=== PATIENT | male | born 1995 | race Caucasian/White ===

== ENCOUNTER 2021-06-22 07:02 | Emergency (ER) | payer OTHER, SELFPAY ==
--- NOTE | ~2021-06-22 | XR_ITS ---
EXAMINATION: XR chest 1V portable EXAM DATE: 06/22/2021 08:30 INDICATION: Cough, SOB,Fever,X3days,COVID19+ . TECHNIQUE: Portable AP frontal chest x-ray was obtained. There is no prior study for comparison. FINDINGS: There is ill-defined right lower lobe subsegmental airspace disease, probably pneumonia. Le ft lung is clear. No pneumothorax or pleural effusion. Cardiomediastinal silhouette is normal. There are no osseous abnormalities identified. IMPRESSION: Subsegmental right lower lobe pneumonia. Reviewed, dictated and finalized at location B.
--- NOTE | ~2021-06-22 | CT_ITS ---
EXAMINATION: CTA chest PE protocol EXAM DATE: 06/22/2021 09:04 INDICATION: COVID, d-dimer elevated, hemoptysis shortness of breath, fever, weakness, positive d-dime r. COVID 19. TECHNIQUE: Spiral CTA of the chest (pulmonary arteries) was performed with 100 cc Omnipaque 350 intr avenous contrast injection. Images were acquired during the pulmonary arterial phase. Coronal maxi mum intensity projection 3D-reconstructions were created by the technologist on dedicated workstation . Axial, coronal and sagittal reformatted images were reviewed. The dose-length product (DLP) for t his examination was 522.59 mGy-cm. The exposure was tailored according to patient size (auto mA exp osure control), and iterative reconstruction (ASIR) was used as additional dose reduction technique. Correlation is made to chest x-ray earlier same day. FINDINGS: Pulmonary arteries are well opacified and without intraluminal filling defects. No thora cic aortic dissection. There is focal right lower lobe round groundglass airspace disease measuring about 5 cm. Could be atypical distribution of acute COVID 19 pneumonia. Other possibilities include i nfluenza, pulmonary edema or hemorrhage. Some chronic processes that can have this appearance include cryptogenic organizing pneumonia, desquamative interstitial pneumonia, nonspecific interstitial pneu monia, drug toxicity, connective tissue disease. Please clinically correlate and test as appropriate. There are no pleural or pericardial effusions. Tracheobronchial tree is patent. Some reactive rig ht hilar lymph nodes. There is no pneumothorax. Heart normal in size. No evidence of coronary ar terial calcification. Upper abdomen is unremarkable. There is thoracic spondylosis without osteobl astic or osteolytic lesions identified. IMPRESSION: 1. Right lower lobe segmental opacity most likely acute infectious process, pneumonia. 2. No pulmonary emboli. Reviewed, dictated and finalized at location B. IMPRESSION: 1. Right lower lobe segmental opacity most likely acute infectious process, pn eumonia. 2. No pulmonary emboli.
[2021-06-22 07:10] VITALS: BP 140/88; PULSE 94; RESP 16; TEMP 38; O2SAT 95
--- NOTE | 2021-06-22 07:26 | ECG_ITS ---
Measurements Intervals [place] Rate: 91 P: 35 CO: 131 QRS: 42 QRSD: 103 T: -6 QT: 383 QTc: 472 Interpretive Statements SINUS RHYTHM BORDERLINE ST-T WAVE ABNORMALITY- INFERIOR LEADS BASELINE ARTIFACT- I, II, III BORDERLINE ECG Electronically Signed On 06-22-2021 7:56:17 CDT by Laz Bashir D.O.
--- NOTE | 2021-06-22 07:29 | ED.GENADULT ---
HPI - General Adult General Chief complaint: Upper Respiratory Infection Stated complaint: POSSIBLE COVID Source: patient Mode of arrival: ambulatory Limitations: no limitations History of Present Illness HPI narrative: Chapo is a previously healthy 25M that presented to the ED with a variety of symptoms. 2 days ago he started having body aches which then led to a productive cough, frontal headaches, fatigue and diffuse body aches. He had some blood tinged vomit on 1 episode but he has vomited several times. Related Data Allergies Allergy/AdvReac Type Severity Reaction Status Date / Time Penicillins Allergy Unknown Verified 06/22/21 07:21 Review of Systems Constitutional: Constitutional: Reports fatigue and Reports fever(s) Eyes: Eyes: Reports no additional eye complaints ENT: Reports system reviewed and no additional complaints, except as documented Cardiovascular: Cardiovascular: Reports no additional cardiovascular complaints Respiratory: Respiratory: Reports as per HPI Gastrointestinal: Gastrointestinal: Reports as per HPI Genitourinary: Genitourinary: Reports no additional male genitourinary complaints Musculoskeletal: Musculoskeletal: Reports as per HPI Integumentary/Breasts: Skin/Breast: Reports system reviewed and no additional complaints, except as docu Neurologic: Reports system reviewed and no additional complaints, except as documented Psychiatric: Psychiatric: Reports no additional psychiatric complaints Endocrine: Endocrine: Reports no additional endocrine complaints Hematologic/Lymphatic: Hematologic/Lymphatic: Reports no additional hematologic/lymphatic complaints Allergic/Immunologic: Allergic/Immunologic: Reports no additional allergic/immunologic complaints Exam Const: General: no acute distress Orientation/consciousness: patient oriented x3 HENMT: Head: normal to inspection Mouth: Yes Normal oral and palatal mucosa present Other: atraumatic Eyes: Conjunctivae: conjunctivae normal Pupils: Equal, round and reactive pupils present Neck: Neck: normal visual inspection Chest: Chest palpation & inspection: normal inspection of the chest Resp: Effort & Inspection: normal respiratory effort Auscultation: clear to auscultation bilaterally Cardio: Rate: regular rate Rhythm: regular rhythm GI: Inspection: non-distended GI Palp: Yes Soft to palpation, No Tenderness to palpation present (GI) and No Guarding due to palpation present (GI) Skin: General skin exam: normal color Rashes: no rashes Neuro: General: patient oriented x3 and moves all extremities Extrem: General: normal to inspection Psych: Mental Status: mental status grossly normal Course Course Emergency Course: Chapo was evaluated. Ordered labs, CXR, EKG. He declined any meds at this time. Labs showed leukopenia but were otherwise normal. COVID was positive. EXAMINATION: CTA chest PE protocol EXAM DATE: 06/22/2021 09:04 INDICATION: COVID, d-dimer elevated, hemoptysis shortness of breath, fever, weakness, positive d-dimer. COVID 19. TECHNIQUE: Spiral CTA of the chest (pulmonary arteries) was performed with 100 cc Omnipaque 350 intravenous contrast injection. Images were acquired during the pulmonary arterial phase. Coronal maximum intensity projection 3D-reconstructions were created by the technologist on dedicated workstation. Axial, coronal and sagittal reformatted images were reviewed. The dose-length product (DLP) for this examination was 522.59 mGy-cm. The exposure was tailored according to patient size (auto mA exposure control), and iterative reconstruction (ASIR) was used as additional dose reduction technique. Correlation is made to chest x-ray earlier same day. FINDINGS: Pulmonary arteries are well opacified and without intraluminal filling defects. No thoracic aortic dissection. There is focal right lower lobe round groundglass airspace disease measuring about 5 cm. Could be atypical distributio
[2021-06-22 07:50] LABS: Hematocrit 44.5 % (40.0-54.0); Hemoglobin 14.3 g/dL (14.0-18.0); Mean Corpuscular HGB Conc 32.1 g/dL (32.0-36.0); Mean Corpuscular Hemoglobin 27.7 pg (27.0-31.0); Mean Corpuscular Volume 86.2 fL (78.0-102.0); Mean Platelet Volume 9.5 fl (8.7-11.0); Platelet Count Result 177 K/mm3 (150-420); Red Blood Count 5.16 M/mm3 (4.70-6.10); Red Cell Distribution Width 13.4 % (11.6-14.4); White Blood Count 4.3 K/mm3 (4.8-10.8)
[2021-06-22 07:52] LABS: Add Urine Microscopic? YES; Appearance Urine Clear (Clear); Bilirubin Urine 1+ (Negative); Blood Urine 1+ (Negative); Color Urine Yellow (Yellow); Glucose Urine UA Negative (Negative); Ketones Urine Trace (Negative); Leukocyte Esterase Ur Negative (Negative); Nitrate Urine Negative (Negative); Protein Urine Trace (Negative); Specific Grav Ur >= 1.030 (1.010-1.020); pH Urine 5.5 (5.0-8.0)
--- NOTE | 2021-06-22 07:55 | PC.NURSE ---
voided without difficulty for urine specimen. denies sob. no cough noted. no emesis since arrival. watching TV. taking ice chips without c/o nausea
[2021-06-22 08:00] LABS: Bacteria Urine Trace /hpf; Mucus Urine Moderate /lpf; WBC Urine 0-3 /hpf (0-3)
[2021-06-22 08:12] LABS: Alanine Aminotransferase 40 U/L (16-63); Alkaline Phosphatase 94 U/L (46-116); Anion Gap 7 mmol/L (8-16); Aspartate Amino Transferase 32 U/L (15-37); Bilirubin,Total 0.5 mg/dL (0.00-1.00); Blood Urea Nitrogen 13 mg/dL (7-18); Calcium 8.7 mg/dL (8.5-10.1); Carbon Dioxide 31 mmol/L (21-32); Chloride 104 mmol/L (98-108); Estimated CRCL calculation 106 ml/min; Estimated Glomerular Filt Rate > 60; Glucose 96 mg/dL (70-99); NT Pro B Type Natriuretic Pept 27 pg/mL (0-125); Osmolality Calculated 294 mOsm/kg (285-295); Potassium 3.6 mmol/L (3.5-5.1); SARS-CoV-2 Ag Positive (Negative); Sodium 142 mmol/L (136-145); Total Protein 7.5 g/dL (6.4-8.2); Troponin I 5.3 ng/L (0.00-60.4)
[2021-06-22 08:12] LABS: Influenza Control Valid (Valid)
[2021-06-22 08:20] LABS: Platelet Estimate Adequate (Adequate)
[2021-06-22 09:05] VITALS: BP 132/68; PULSE 89; RESP 16; TEMP 37.7; O2SAT 96
[2021-06-22] MEDS: ACETAMINOPHEN 500 MG TABLET 1000 MG PO (09:27)
--- NOTE | 2021-06-22 09:36 | PC.NURSE ---
0905---pt to radiology per w/c. denies sob at this time. resp even and non-labored. denies n/v. no emesis since arrival. tommie ice chips well.
== END 2021-06-22 10:00 | disposition home or self-care (01) ==
PROVIDERS: Emergency Provider Family Medicine
DX: U07.1 COVID-19 (principal); J18.9 Pneumonia, unspecified organism
CPT/HCPCS: 36415; 71045; 71275; 80053; 81001; 83880; 84484; 85025; 85380; 87426; 87804; 93005; 99283; 99284; C9803; Q9967

== ENCOUNTER 2021-06-29 17:11 | Inpatient (IN) | payer OTHER, SELFPAY ==
[2021-06-29] VITALS (7 sets, daily range): BP systolic 116–149; BP diastolic 72–77; PULSE 89–106; RESP 18–20; TEMP 37.4–38.4; O2SAT 92–95; BMI 30.5
--- NOTE | ~2021-06-29 | XR_ITS ---
EXAMINATION: XR chest 1V portable INDICATION: Cough and fever, COVID 19 TECHNIQUE: Portable AP chest at 1807 hours COMPARISON: 06/22/2021 FINDINGS: Patchy opacities have developed throughout all lung zones, most prominently in the left mid lung zone in the right mid and lower lung zones. There is no pleural effusion or pneumothorax. The ca rdiomediastinal silhouette is normal. IMPRESSION: 1. Developing bilateral opacities, consistent with COVID 19 pneumonia Reviewed, dictated and finalized at location A.
--- NOTE | 2021-06-29 17:44 | ED.FEVER ---
HPI - Fever General Chief Complaint: Shortness of Breath/Dyspnea Stated Complaint: COVID+, chest pain,cough,fever,headache,vomiting Time Seen by Provider: 06/29/21 17:44 Source: patient Mode of arrival: ambulatory Limitations: no limitations History of Present Illness HPI Narrative: Previously well 25-year-old man comes in today complaining of shortness of breath, fever, body aches, headache and cough that has been persistent for the last week. He was diagnosed with COVID 1 week ago. He went home on a week of oral Levaquin and his symptoms are unchanged. He has had some mild intermittent diarrhea, nausea and vomiting. MD elicited complaint: fever, malaise and weakness Onset (ago): week(s) (1) Context: recent antibiotic use Exacerbating factors: nothing Relieving factors: nothing Associated symptoms: myalgias, headache, nasal congestion, cough, chest pain (With cough), shortness of breath, nausea, vomiting and diarrhea Treatments prior to arrival fever: acetaminophen, ibuprofen and antibiotics Related Data Allergies Allergy/AdvReac Type Severity Reaction Status Date / Time Penicillins Allergy Unknown Verified 06/29/21 17:52 Review of Systems Constitutional: Constitutional: Reports fatigue and Reports fever(s) Eyes: Eyes: Denies change in vision and Denies photophobia ENT: Reports nasal congestion and Denies sore throat Cardiovascular: Cardiovascular: Reports chest pain (With cough) and Denies radiating jaw, neck or arm pain Respiratory: Respiratory: Reports as per HPI, Reports chest congestion, Reports cough, Reports dyspnea and Denies wheezing Gastrointestinal: Gastrointestinal: Denies abdominal pain, Reports diarrhea, Reports nausea and Reports vomiting Genitourinary: Genitourinary: Denies dysuria and Denies urinary frequency Musculoskeletal: Musculoskeletal: Denies back pain, Reports myalgias, Denies arthralgias and Denies joint swelling Integumentary/Breasts: Skin/Breast: Denies pruritus, Denies erythema and Denies rash Neurologic: Denies confusion, Denies vertigo, Denies dizziness, Denies syncope, Reports headache(s), Denies focal weakness and Denies numbness Hematologic/Lymphatic: Hematologic/Lymphatic: Denies easy bleeding and Denies easy bruising Allergic/Immunologic: Allergic/Immunologic: Denies lip swelling, Denies throat swelling and Denies tongue swelling [facility] Social History Social History (Updated 06/29/21 @ 20:12 by Hammad Valentin MD) Smoking status: Never smoker Substance use: never Living arrangements: with family Exam Const: General: alert and ill appearing acutely Orientation/consciousness: patient oriented x3 Other: Mild acute distress. HENMT: Head: normal to inspection Mouth: Yes moist mucous membranes Throat: posterior oropharynx normal Eyes: Conjunctivae: conjunctivae normal Pupils: Equal, round and reactive pupils present EOM: EOMs intact bilaterally Resp: Effort & Inspection: normal respiratory effort and not labored Auscultation: wheezes expiratory wheezes, inspiratory wheezes, right lower and right upper and diminished lung sounds diffuse Cardio: Rate: regular rate Rhythm: regular rhythm Heart sounds: no murmurs Other: Extremities are warm dry and pink. GI: GI Palp: Yes Soft to palpation and No Tenderness to palpation present (GI) Skin: General skin exam: normal color, no jaundice and no pallor Rashes: no rashes Neuro: General: patient oriented x3, moves all extremities, no focal motor deficits and CN's II-XI intact bilaterally Speech: normal speech Gait exam (Neuro): Normal gait present Extrem: General: normal to inspection and no clubbing, cyanosis or edema Psych: Appearance: grossly normal and well kempt Mental Status: mental status grossly normal Affect: normal affect Attitude: cooperative Thought content: Yes Normal thought content present Course Vital Signs Vital signs: Vital Signs Temperature 38.4 C H 06/29/21 17:44 Pulse Rate 106 H 06/02
--- NOTE | 2021-06-29 17:51 | ECG_ITS ---
Measurements Intervals [place] Rate: 98 P: 22 MS: 138 QRS: 36 QRSD: 96 T: -28 QT: 333 QTc: 427 Interpretive Statements SINUS RHYTHM BORDERLINE ST-T WAVE ABNORMALITY- INF/LAT LEADS BASELINE ARTIFACT- II, III, AVF BORDERLINE ECG Electronically Signed On 06-30-2021 10:04:26 CDT by Laz Bashir D.O.
[2021-06-29 18:20] LABS: Base Excess ABG 3.6 mmol/L (0-2); HCO3 ABG 27.3 mmol/L (23-29); Oxygen Content ABG 17.7 %vol (16.0-22.0); Oxygen Saturation ABG 91.8 % (95-97); Oxyhemoglobin 91.4 % (94-100); PO2 ABG 56.8 mmHg (80-90); Total Hemoglobin 13.8 g/dL (12.0-18.0); pH ABG 7.47 (7.35-7.45)
[2021-06-29 18:22] LABS: Device NASAL CANNULA; Hematocrit 43.9 % (40.0-54.0); Mean Corpuscular HGB Conc 31.9 g/dL (32.0-36.0); Mean Corpuscular Hemoglobin 27.2 pg (27.0-31.0); Mean Corpuscular Volume 85.2 fL (78.0-102.0); Mean Platelet Volume 9.4 fl (8.7-11.0); Modified Allen's Test Pass; Platelet Count Result 215 K/mm3 (150-420); Red Blood Count 5.15 M/mm3 (4.70-6.10); Red Cell Distribution Width 13.2 % (11.6-14.4); Site Drawn LEFT RADIAL; White Blood Count 4.5 K/mm3 (4.8-10.8)
[2021-06-29] MEDS: SODIUM CHLORIDE 0.9% IV 1,000 ML 999 ML IV CONT (18:33)
[2021-06-29] MEDS: ACETAMINOPHEN/CODEINE (*CRX) 300/30 MG TABLET 1 TAB PO (18:37)
[2021-06-29 18:41] LABS: Lactic Acid Reflex 1.2 mmol/L (0.4-2.0)
[2021-06-29 18:42] LABS: Alanine Aminotransferase 69 U/L (16-63); Albumin Level 3.5 g/dL (3.4-5.0); Alkaline Phosphatase 79 U/L (46-116); Anion Gap 8 mmol/L (8-16); Aspartate Amino Transferase 50 U/L (15-37); Bilirubin,Total 0.4 mg/dL (0.00-1.00); Blood Urea Nitrogen 14 mg/dL (7-18); Calcium 8.9 mg/dL (8.5-10.1); Carbon Dioxide 31 mmol/L (21-32); Chloride 102 mmol/L (98-108); Estimated CRCL calculation 125 ml/min; Estimated Glomerular Filt Rate > 60; Glucose 102 mg/dL (70-99); NT Pro B Type Natriuretic Pept 29 pg/mL (0-125); Osmolality Calculated 292 mOsm/kg (285-295); Potassium 4.1 mmol/L (3.5-5.1); Sodium 141 mmol/L (136-145); Total Protein 7.5 g/dL (6.4-8.2); Troponin I 4.4 ng/L (0.00-60.4)
[2021-06-29 18:44] LABS: Band Neutrophils Percent 0 % (0-6); Basophils Absolute Manual 0.04 K/mm3 (0-0.1); Basophils Percent Manual 1 % (0-1); CRP > 10.6 mg/dL (0.0-0.9); Eosinophils Percent Manual 0 % (1-6); Lymphocytes Absolute Manual 0.63 K/mm3 (1.1-4.5); Lymphocytes Percent Manual 14 % (18-44); Monocytes Absolute Manual 0.18 K/mm3 (0.1-0.90); Monocytes Percent Manual 4 % (3-9); Neutrophils Absolute Manual 3.64 K/mm3 (1.3-6.7); Neutrophils Percent Manual 81 % (46-73); Platelet Estimate Adequate (Adequate)
[2021-06-29 19:30] LABS: Add Urine Microscopic? YES; Appearance Urine Clear (Clear); Bilirubin Urine 1+ (Negative); Blood Urine Negative (Negative); Color Urine Yellow (Yellow); Glucose Urine UA Negative (Negative); Ketones Urine Negative (Negative); Leukocyte Esterase Ur Negative (Negative); Nitrate Urine Negative (Negative); Protein Urine 1+ (Negative); Specific Grav Ur 1.015 (1.010-1.020); Urobilinogen Urine >=8.0 mg/dL (0.2-1.0); pH Urine 7.5 (5.0-8.0)
[2021-06-29 19:36] LABS: Bacteria Urine Trace /hpf; RBC Urine 0-2 /hpf (0-2); Squamous Epithelial Cell Urine None seen /hpf (Few); WBC Urine 0-3 /hpf (0-3)
[2021-06-29 19:37] LABS: Mucus Urine Rare /lpf
--- NOTE | 2021-06-29 20:00 | PC.NURSE ---
Pt admitted to room 210 from ED. Covid positive patient placed on airborne isolation. Pt educated on isolation status and oriented to the environment. Pt has clothing and cell phone at bedside. Pt states he will be updating his family on his status. All questions answered at this time, pt given a turkey sandwich and some jello to eat.
[2021-06-29] MEDS: SODIUM CHLORIDE 0.9% IV 1,000 ML 100 ML IV CONT (20:32)
[2021-06-29 20:53] LABS: Influenza Control Valid (Valid)
--- NOTE | 2021-06-29 22:30 | PC.NURSE ---
Patient sitting up in bed drinking ice water. Continues to experience cough and generalized discomfort
[2021-06-30] VITALS (13 sets, daily range): BP systolic 124–133; BP diastolic 65–82; PULSE 78–92; RESP 16–21; TEMP 36.9–37.4; O2SAT 86–95
[2021-06-30] MEDS: ACETAMINOPHEN/CODEINE (*CRX) 300/30 MG TABLET 1 TAB PO ×2 (00:28→06:19)
--- NOTE | 2021-06-30 00:30 | PC.NURSE ---
Patient sitting up in med drinking ice water. Reports generalized discomfort and pain with coughing. Cough and pain decreased with tylenol with codeine.
--- NOTE | 2021-06-30 01:34 | PC.NURSE ---
Patient resting at this time. Fluids available at bedside.
[2021-06-30 05:45] LABS: Hematocrit 38.4 % (40.0-54.0); Mean Corpuscular HGB Conc 31.3 g/dL (32.0-36.0); Mean Corpuscular Hemoglobin 26.9 pg (27.0-31.0); Mean Corpuscular Volume 86.1 fL (78.0-102.0); Platelet Count Result 178 K/mm3 (150-420); Red Blood Count 4.46 M/mm3 (4.70-6.10); Red Cell Distribution Width 13.4 % (11.6-14.4); White Blood Count 4.4 K/mm3 (4.8-10.8)
[2021-06-30 06:02] LABS: Band Neutrophils Percent 0 % (0-6); Basophils Percent Manual 0 % (0-1); Eosinophils Percent Manual 0 % (1-6); Lymphocytes Absolute Manual 1.23 K/mm3 (1.1-4.5); Lymphocytes Percent Manual 28 % (18-44); Monocytes Absolute Manual 0.44 K/mm3 (0.1-0.90); Monocytes Percent Manual 10 % (3-9); Neutrophils Absolute Manual 2.72 K/mm3 (1.3-6.7); Neutrophils Percent Manual 62 % (46-73); Platelet Estimate Adequate (Adequate)
[2021-06-30 06:03] LABS: Alanine Aminotransferase 50 U/L (16-63); Albumin Level 2.7 g/dL (3.4-5.0); Alkaline Phosphatase 64 U/L (46-116); Anion Gap 7 mmol/L (8-16); Aspartate Amino Transferase 36 U/L (15-37); Bilirubin,Total 0.3 mg/dL (0.00-1.00); Blood Urea Nitrogen 11 mg/dL (7-18); Calcium 8.2 mg/dL (8.5-10.1); Carbon Dioxide 31 mmol/L (21-32); Chloride 106 mmol/L (98-108); Estimated CRCL calculation 127 ml/min; Estimated Glomerular Filt Rate > 60; Glucose 92 mg/dL (70-99); Osmolality Calculated 297 mOsm/kg (285-295); Potassium 4.1 mmol/L (3.5-5.1); Sodium 144 mmol/L (136-145); Total Protein 6.3 g/dL (6.4-8.2)
[2021-06-30] MEDS: SODIUM CHLORIDE 0.9% IV 1,000 ML 100 ML IV CONT ×2 (06:19→16:20)
--- NOTE | 2021-06-30 08:09 | PM.IMHP ---
H&P: HPI History of Present Illness Date/Time: 06/30/21 08:09n Pt admitted under Observation for COVID pneumonia Chapo Vee is a 25 year old male who comes to the hospital after 11 days of Fever, Body Aches, Joint Aches, persistent cough that is non-productive. Pt tested positive for COVID when in the ER on 06/22/2021 Negative for Flu A/B. Does not complain too much of SOB but more so for his repeated coughing. Chief Complaint: COVID pneumonia Review of Systems Constitutional: Constitutional: Reports no additional constitutional complaints, Reports body ache(s), Denies chills, Reports fever(s), Reports malaise and Reports poor appetite (due to taste) Cardiovascular: Cardiovascular: Reports no additional cardiovascular complaints, Denies chest pain, Denies chest pain at rest and Denies lightheadedness Respiratory: Respiratory: Reports no additional respiratory complaints, Reports cough and Denies dyspnea Gastrointestinal: Gastrointestinal: Reports no additional gastrointestinal complaints, Denies diarrhea, Denies nausea and Denies vomiting Genitourinary: Genitourinary: Reports no additional male genitourinary complaints Musculoskeletal: Musculoskeletal: Reports as per HPI, Reports myalgias, Reports arthralgias and Denies joint swelling Neurologic: Reports system reviewed and no additional complaints, except as documented, Denies vertigo, Denies dizziness, Denies lack of coordination and Denies focal weakness [facility] Social History Social History Smoking status: Never smoker Alcohol intake: current Drinks per week: 2 Substance use: never Substance use type: does not use Living arrangements: with family Spiritual care concerns: No Meds Home Medications and Allergies Home Medications Medication Instructions Recorded Confirmed Type levofloxacin 750 mg PO DAILY #6 tablet 06/22/21 06/29/21 Rx Allergies Allergy/AdvReac Type Severity Reaction Status Date / Time Penicillins Allergy Unknown Verified 06/29/21 17:52 Vital Signs Vital Signs - 24 hr 06/29/21 17:44 06/29/21 18:00 06/29/21 19:00 Temperature 101.1 F H Pulse Rate 106 H 95 91 Respiratory Rate 20 20 20 Blood Pressure 149/75 H 136/77 116/77 Pulse Oximetry 94 93 92 06/29/21 19:30 06/29/21 20:00 06/29/21 20:05 Temperature 100.1 F H Pulse Rate 90 90 89 Respiratory Rate 20 20 Blood Pressure 117/76 Pulse Oximetry 92 93 06/29/21 20:15 06/30/21 00:00 06/30/21 00:28 Temperature 99.3 F 99.4 F 99.4 F Pulse Rate 93 90 Respiratory Rate 18 18 Blood Pressure 130/72 129/74 Pulse Oximetry 95 91 06/30/21 04:00 06/30/21 06:19 06/30/21 08:00 Temperature 99.2 F 99.2 F 98.6 F Pulse Rate 79 84 Respiratory Rate 16 20 Blood Pressure 129/66 130/70 Pulse Oximetry 92 94 Exam Const: General: cooperative, comfortable, no acute distress, well developed, alert, awake, Physically active and tired appearing Nutritional Appearance: overweight Resp: Effort & Inspection: normal respiratory effort and Actively coughing (with deep inspiration) productive Auscultation: rales (Right lower lobe posterior) Cardio: Rate: regular rate Heart sounds: S1 normal heart sound present and S2 normal heart sound present GI: GI Palp: Yes Soft to palpation and No Tenderness to palpation present (GI) Auscultation: normal bowel sounds Back/Spine/Pelvis: Back: no CVA tenderness Cervical Spine: normal cervical lordosis Thoracic/Lumbar Spine: thoracic and lumbar spine normal to inspection Skin: General skin exam: normal color and dry skin Neuro: General: oriented to person, oriented to place, oriented to time and CN's II-XI intact bilaterally (grossly intact) Cranial nerves: Yes facial symmetry Cognition (Neuro): normal cognition Speech: normal speech Motor exam (neuro): 5/5 motor strength present throughout Extrem: General: full ROM and no pedal edema Psych: Appearance: grossly norm
--- NOTE | 2021-06-30 08:47 | PC.NURSE ---
Patient resting abed eyes open A/O x4 Cough nonproductive, Lungs diminished bilateral lower lobes,skin dry/color appropriate, no edema, O2 sat 94%,No taste. Respiratory Therapy in for incentive spirometer lung exercising technique. O2 sats decreased with 85-86% R/A. INSURANCE CONSULTANT Leonard made aware O2 placed. Will follow up changes upon occurrence.
--- NOTE | 2021-06-30 09:10 | PC.NURSE ---
9:00 a.m. Resident placed on O2@2Lpnc due to O2 sat drop down 85-86%. Encouragement to lye on abdomen and sides with avoidance on back as much as possible. Good verbal feedback of understanding. O2 sats after O2 @2lpnc 92%.
[2021-06-30 09:13] LABS: Base Excess ABG 1.2 mmol/L (0-2); HCO3 ABG 25.5 mmol/L (23-29); Oxygen Content ABG 17.3 %vol (16.0-22.0); Oxygen Saturation ABG 93.4 % (95-97); Oxyhemoglobin 92.7 % (94-100); PCO2 ABG 39.5 mmHg (35-45); PO2 ABG 66.7 mmHg (80-90); Total Hemoglobin 13.3 g/dL (12.0-18.0); pH ABG 7.43 (7.35-7.45)
[2021-06-30 09:14] LABS: Device NASAL CANNULA; Modified Allen's Test Pass; Site Drawn RIGHT RADIAL
--- NOTE | 2021-06-30 09:31 | PC.NURSE ---
Patient O2 sats dipping down. RT re-eval with O2 increased to 3Lpnc.
--- NOTE | 2021-06-30 09:45 | PC.NURSE ---
09:42 switch status to In-patient from observation status.
--- NOTE | 2021-06-30 10:10 | PC.NURSE ---
Incentive Spirometer encouraged 3500 is the Goal parient reached 2000 x2 and 2500 x2, continued encouraged Goal to meet with understanding.
--- NOTE | 2021-06-30 12:49 | PC.NURSE ---
Patient in sitting position abed, incentive spirometer done with all just above 2500. Continued emphesis on position should be on sides and more onto abdomen will be best for O2 levels. Patient contionues good verbal feedback. Will continue to monitor and observe and note changes as needed.
[2021-06-30] MEDS: guaiFENesin/DEXTROMETHORPHAN 5 ML UDC 10 ML PO ×2 (13:44→18:42)
--- NOTE | 2021-06-30 19:40 | PC.NURSE ---
Pt moved to room 212 due to issue with plumbing in the bathroom.
[2021-07-01] VITALS (8 sets, daily range): BP systolic 118–139; BP diastolic 63–81; PULSE 69–88; RESP 20; TEMP 36–36.6; O2SAT 92–97
[2021-07-01] MEDS: guaiFENesin/DEXTROMETHORPHAN 5 ML UDC 10 ML PO ×5 (04:25→23:20)
[2021-07-01] MEDS: SODIUM CHLORIDE 0.9% IV 1,000 ML 100 ML IV CONT (04:25)
[2021-07-01 05:38] LABS: Hemoglobin 13.9 g/dL (14.0-18.0); Mean Corpuscular HGB Conc 31.6 g/dL (32.0-36.0); Mean Corpuscular Volume 85.6 fL (78.0-102.0); Mean Platelet Volume 8.9 fl (8.7-11.0); Platelet Count Result 250 K/mm3 (150-420); Red Blood Count 5.14 M/mm3 (4.70-6.10); Red Cell Distribution Width 13.4 % (11.6-14.4); White Blood Count 5.3 K/mm3 (4.8-10.8)
[2021-07-01 05:50] LABS: Anion Gap 7 mmol/L (8-16); Blood Urea Nitrogen 10 mg/dL (7-18); Calcium 8.7 mg/dL (8.5-10.1); Carbon Dioxide 31 mmol/L (21-32); Chloride 107 mmol/L (98-108); Estimated CRCL calculation 137 ml/min; Estimated Glomerular Filt Rate > 60; Glucose 95 mg/dL (70-99); Osmolality Calculated 299 mOsm/kg (285-295); Sodium 145 mmol/L (136-145)
--- NOTE | 2021-07-01 08:20 | PM.IMPN ---
Progress Note: A&P Assessment and Plan (1) COVID-19: Code(s): U07.1 - COVID-19 Status: Acute Assessment and Plan: Rocephin, Azithromycin, Guaifenesin/Dextromethorphan, incentive spirometer, Flutter valve. Monitor VS, respiratory status, currently room air, Pt ambulated to the restroom and back to bed without SOB or increased WOB 07/01/2021 Pt started on oxygen yesterday at 2 L/min, overnight he required 3L/min, This AM his SpO2 was 96% and I reduced his Os flow to 1.5L/minute with a resulting SpO2 of 93% and an increase to 96% when Pt laid prone. Will monitor closely. Pt denies SOB or increased WOB, no CP. Pt was given option to start Remdesivir and stated he was not interested at this time but would like to have the steroid daily. (2) Community acquired pneumonia: Qualifiers: Laterality: unspecified laterality Qualified Code(s): J18.9 - Pneumonia, unspecified organism Code(s): J18.9 - Pneumonia, unspecified organism Status: Acute Assessment and Plan: Pt covered with Rocephin and Azithromycin along with same as listed above. 07/01/2021 Continue with Rocephin and Azithromycin, Pt has Incentive Spirometer and Flutter Valve in his room. Subjective Date/time seen: 07/01/21 08:20 Pt resting in bed with breakfast tray on table. Pt states his breathing feels better. No complaints of pain in his chest or pain with breathing. staff nurse anesthetist last night needed to turn up O2 to 3 L/min and Pt SpO2 92%-97%. Asked Pt if he has been laying on his stomach, he replied no due to equipment that is connected to him. I gave him an informational handout explaining what pronating does with the lungs and blood flow. Encouraged him to prone himself after he has breakfast. Pt has no questions at this time. I explained that once his oxygen requirement is back to normal we can start thinking about discharging him home. Review of Systems Review of Systems: All systems reviewed & are unremarkable except as noted in HPI and below Exam Const: General: cooperative, healthy appearing, comfortable, no acute distress, well developed, alert, awake and Physically active Nutritional Appearance: overweight Limitations: other limitations (decreased SpO2 without NC in place) Resp: Effort & Inspection: normal respiratory effort Auscultation: rales on the right 1/[address] way up Cardio: Rate: regular rate Heart sounds: S1 normal heart sound present and S2 normal heart sound present GI: GI Palp: Yes Soft to palpation, No Tenderness to palpation present (GI) and No Guarding due to palpation present (GI) Auscultation: normal bowel sounds Back/Spine/Pelvis: Back: no CVA tenderness Thoracic/Lumbar Spine: thoracic and lumbar spine normal to inspection Skin: General skin exam: normal color and dry skin Neuro: General: oriented to person, oriented to place and oriented to time Cranial nerves: Yes CN's II-XII intact bilaterally (grossly intact) Cognition (Neuro): normal cognition Speech: normal speech Motor exam (neuro): 5/5 motor strength present throughout Extrem: General: full ROM and no pedal edema Psych: Appearance: grossly normal Mental Status: mental status grossly normal Speech and movement: Normal speech and movement present Affect: normal affect Attitude: cooperative Thought process: Normal thought process present Objective Data Vital Signs Vital Signs: Vital Signs - 24 hr 06/30/21 08:45 06/30/21 09:00 06/30/21 09:30 Temperature Pulse Rate 88 Respiratory Rate 20 Blood Pressure Pulse Oximetry 92 86 L 91 06/30/21 09:52 06/30/21 12:00 06/30/21 16:00 Temperature 98.4 F 98.4 F Pulse Rate 92 84 84 Respiratory Rate 20 18 20 Blood Pressure 124/72 124/65 Pulse Oximetry 92 95 94 06/30/21 20:00 07/01/21 00:00 07/01/21 03:46 Temperature 98.4 F 96.8 F L Pulse Rate 80 88 70 Respiratory Rate 21 H 20 Blood Pressure 133/82 139/68 Pulse Oximetry 94 97 07/01/21 03:47 07/01/21 07:43 Temperature 97.5
--- NOTE | 2021-07-01 08:32 | PC.NURSE ---
FROYLAN Morfin to see patient. O2 decreased to 1.5Lpnc. O2sat down to 90%, encouraged sides or abd lying. Deep breathing technique emphasized along with best results for O2 sat is on abdomen. O2 sat imncreased to 93-94%. Will continue to monitor and note changes.
[2021-07-01] MEDS: ENOXAPARIN 40 MG/0.4 ML SYRINGE SUB-Q (10:33)
--- NOTE | 2021-07-01 10:59 | PC.NURSE ---
Received new orders; Lovenox 40 mg given IM right lower Quad. Decadron 6mg IVP done via DEYANIRA Lee. These will continue Decadron will be 6 mg p.o. (3-2mg tabs) on 07/02/21 8a.m./ Lovenox will be 40mg IM every 12 hours due next 07/02/21.
--- NOTE | 2021-07-01 19:12 | PC.NURSE ---
1911 Azithromycin not charted correctly. Nurse did not put in a start time. Medication administered without difficulty.
[2021-07-01] MEDS: ENOXAPARIN 40 MG/0.4 ML SYRINGE 30 MG SUB-Q (20:51)
[2021-07-02] VITALS (7 sets, daily range): BP systolic 129–151; BP diastolic 67–84; PULSE 54–76; RESP 18–20; TEMP 36.1–36.6; O2SAT 93–96
[2021-07-02] MEDS: SODIUM CHLORIDE 0.9% IV 1,000 ML 100 ML IV CONT (01:31)
[2021-07-02] MEDS: guaiFENesin/DEXTROMETHORPHAN 5 ML UDC 10 ML PO ×3 (06:05→18:03)
[2021-07-02 06:08] LABS: Hematocrit 41.8 % (40.0-54.0); Hemoglobin 13.5 g/dL (14.0-18.0); Mean Corpuscular HGB Conc 32.3 g/dL (32.0-36.0); Mean Corpuscular Hemoglobin 27.1 pg (27.0-31.0); Mean Corpuscular Volume 83.9 fL (78.0-102.0); Mean Platelet Volume 8.9 fl (8.7-11.0); Platelet Count Result 342 K/mm3 (150-420); Red Blood Count 4.98 M/mm3 (4.70-6.10); White Blood Count 4.8 K/mm3 (4.8-10.8)
[2021-07-02 06:17] LABS: Anion Gap 10 mmol/L (8-16); Blood Urea Nitrogen 8 mg/dL (7-18); Calcium 9.2 mg/dL (8.5-10.1); Carbon Dioxide 28 mmol/L (21-32); Chloride 107 mmol/L (98-108); Estimated CRCL calculation 162 ml/min; Estimated Glomerular Filt Rate > 60; Glucose 116 mg/dL (70-99); Osmolality Calculated 299 mOsm/kg (285-295); Potassium 3.8 mmol/L (3.5-5.1); Sodium 145 mmol/L (136-145)
[2021-07-02] MEDS: DEXAMETHASONE 2 MG TABLET 6 MG PO (08:05)
--- NOTE | 2021-07-02 10:38 | PM.IMPN ---
Progress Note: A&P Assessment and Plan (1) COVID-19: Code(s): U07.1 - COVID-19 Status: Acute Assessment and Plan: Rocephin, Azithromycin, Guaifenesin/Dextromethorphan, incentive spirometer, Flutter valve. Monitor VS, respiratory status, currently room air, Pt ambulated to the restroom and back to bed without SOB or increased WOB 07/01/2021 Pt started on oxygen yesterday at 2 L/min, overnight he required 3L/min, This AM his SpO2 was 96% and I reduced his Os flow to 1.5L/minute with a resulting SpO2 of 93% and an increase to 96% when Pt laid prone. Will monitor closely. Pt denies SOB or increased WOB, no CP. Pt was given option to start Remdesivir and stated he was not interested at this time but would like to have the steroid daily. 07/02/2021 Attempted to wean off O2 however Pt still requires 1L/min via NC, no CP or SOB, does desaturate to 88% when walking to the restroom and when he goes to the restroom he does take his NC off. (2) Community acquired pneumonia: Qualifiers: Laterality: unspecified laterality Qualified Code(s): J18.9 - Pneumonia, unspecified organism Code(s): J18.9 - Pneumonia, unspecified organism Status: Acute Assessment and Plan: Pt covered with Rocephin and Azithromycin along with same as listed above. 07/01/2021 Continue with Rocephin and Azithromycin, Pt has Incentive Spirometer and Flutter Valve in his room. 07/02/2021 Pt has 1 more day left on IV Ab. Pt will need a 6 minute walk test if he is DC'ed tomorrow. No SOB or productive cough, did not cough this AM with deep breathing, uses IS and Flutter valve. Subjective Date/time seen: 07/02/21 10:38 Pt O2 was taken off this AM but SpO2 decreased to 88% while in bed or walking to the restroom. Usually while resting in bed his SpO2 is 88%-91% on room air. O2 flow back to 1L/min and SpO2 increased to 93% with a max of 95% when at rest. Pt has no complaints of SOB or CP and no other concerns, questions at this time. Review of Systems Review of Systems: All systems reviewed & are unremarkable except as noted in HPI and below Exam Const: General: cooperative, healthy appearing, comfortable, no acute distress, alert, awake and Physically active Nutritional Appearance: overweight Resp: Effort & Inspection: normal respiratory effort Auscultation: rhonchi right lower (scattered, mild) Cardio: Rate: regular rate Heart sounds: S1 normal heart sound present and S2 normal heart sound present GI: GI Palp: Yes Soft to palpation, No Tenderness to palpation present (GI), No Hernia present and No Pulsatile mass present Auscultation: normal bowel sounds Skin: General skin exam: normal color and dry skin Trauma: no lacerations or abrasions Wounds: no wounds Hair: normal Neuro: General: oriented to person, oriented to place, oriented to time and CN's II-XI intact bilaterally (grossly intact) Cognition (Neuro): normal cognition Speech: normal speech Motor exam (neuro): 5/5 motor strength present throughout Extrem: General: full ROM, no pedal edema, no calf tenderness and normal gait Psych: Appearance: grossly normal Mental Status: mental status grossly normal Speech and movement: Normal speech and movement present Affect: normal affect Attitude: cooperative Thought process: Normal thought process present Objective Data Vital Signs Vital Signs: Vital Signs - 24 hr 07/01/21 12:00 07/01/21 16:00 07/01/21 20:00 Temperature 97.8 F 97.0 F L 96.9 F L Pulse Rate 78 76 77 Respiratory Rate 20 20 20 Blood Pressure 124/76 120/70 132/81 Pulse Oximetry 96 96 93 07/02/21 00:00 07/02/21 04:00 07/02/21 07:22 Temperature 97.3 F L 97.6 F 97.6 F Pulse Rate 54 L 62 76 Respiratory Rate 18 18 20 Blood Pressure 129/84 133/74 151/77 H Pulse Oximetry 93 94 96 Intake/Output Intake/Output: Intake & Output 06/29/21 06/30/21 07/01/21 07/02/21 23:59 23:59 23:59 23:59 Intake Total 1300 3398.333 3240.000 1000 Balance 1300 3398.333 3240.
--- NOTE | 2021-07-02 11:33 | PC.NURSE ---
Patient cont. on isolation w/no c/o pain or discomfort at this time. No c/o cough or issues breathing altho attempt to remove O2 NC unsuccessful at this time but lowered to 1L w/SATS remaining between 93-96%. IV site leaking and discontinued but patient instructed to record I&O closely.
--- NOTE | 2021-07-02 20:50 | PC.NURSE ---
Patient A/O x4. Sitting in bed, denies any SOB. Continues with continuos pulse ox at 96% on 1L. Patient stated some SOB during shower but ambulating to and from bathroom without O2, no SOB noted. Continues with IS, patient states up to 3000. Continues with flutter device. Monitoring status.
[2021-07-03] VITALS (8 sets, daily range): BP systolic 134–142; BP diastolic 66–76; PULSE 46–99; RESP 18–20; TEMP 36–36.4; O2SAT 90–96
[2021-07-03] MEDS: guaiFENesin/DEXTROMETHORPHAN 5 ML UDC 10 ML PO ×3 (00:10→11:59)
--- NOTE | 2021-07-03 00:18 | PC.NURSE ---
Patient denies any SOB. Continues with O2 at 1L per nasal cannula. Continuous pulse ox at 96% and telemetry, sinus saleem. Patient independent in room. Continues isolation. Monitoring status.
[2021-07-03 06:02] LABS: Hemoglobin 14.3 g/dL (14.0-18.0); Mean Corpuscular HGB Conc 31.8 g/dL (32.0-36.0); Mean Corpuscular Hemoglobin 26.9 pg (27.0-31.0); Mean Corpuscular Volume 84.7 fL (78.0-102.0); Mean Platelet Volume 8.8 fl (8.7-11.0); Platelet Count Result 349 K/mm3 (150-420); Red Blood Count 5.31 M/mm3 (4.70-6.10); Red Cell Distribution Width 12.8 % (11.6-14.4); White Blood Count 7.2 K/mm3 (4.8-10.8)
[2021-07-03 06:16] LABS: Anion Gap 9 mmol/L (8-16); Blood Urea Nitrogen 10 mg/dL (7-18); Calcium 9.1 mg/dL (8.5-10.1); Carbon Dioxide 29 mmol/L (21-32); Chloride 107 mmol/L (98-108); Estimated CRCL calculation 140 ml/min; Estimated Glomerular Filt Rate > 60; Glucose 110 mg/dL (70-99); Osmolality Calculated 300 mOsm/kg (285-295); Potassium 3.8 mmol/L (3.5-5.1); Sodium 145 mmol/L (136-145)
--- NOTE | 2021-07-03 07:37 | PC.NURSE ---
rt here to eval for home o2 use
--- NOTE | 2021-07-03 07:46 | HOMEO2EVAL ---
Evaluation was performed at [facility] Home Oxygen Evaluation RC: Home Oxygen (O2) Evaluation Start: 07/03/21 09:00 Freq: ONCE Status: Active Protocol: RPE Activity Type Activity Date Activity User E-Sign Co-Sign Detail Recorded Client Recorded Date Recorded By Document 07/03/21 07:30 SJB [id number] 07/03/21 07:43 SJB Document 07/03/21 07:38 SJB [id number] 07/03/21 07:43 SJB 07/03/21 07/03/21 07:30 07:38 Home O2 Evaluation Test Phase Resting Exercise Oxygen Delivery Room Air Room Air Pulse Oximetry (90-100 %) 94 90 Pulse Rate (60-100 beats/min) 81 99 Activity Tolerance Good Rating of Perceived Dyspnea (PD) +1 Mild, Noticeable to the Participant but Not to an Observer Rate of Perceived Exertion (PE) 12 Ambulation Distance (feet) 550 Home Oxygen Evaluation Comments WILL BEGIN WALK PT WALKED ON ROOM AIR UNASSISTED ON NOW. ROOM AIR. WALKED APPROX 550 FT. SP02 89-90% DURING PEAK EXERCISE. HR WNL. VOICED NO COMPLAINTS EXCEPT FOR LEG WEAKNESS. PLB STRONGLY ENCOURAGED. Treatment Charges O2 Evaluation - Inpatient
[2021-07-03] MEDS: DEXAMETHASONE 2 MG TABLET 6 MG PO (08:09)
--- NOTE | 2021-07-03 10:23 | PM.DS ---
DS: Admitting Diagnosis Discharge Date 07/03/2021 Admitting Diagnosis COVID, Pneumonia DS: Discharge Diagnosis Discharge Diagnosis (1) COVID-19: Code(s): U07.1 - COVID-19 Status: Acute Assessment and Plan: Rocephin, Azithromycin, Guaifenesin/Dextromethorphan, incentive spirometer, Flutter valve. Monitor VS, respiratory status, currently room air, Pt ambulated to the restroom and back to bed without SOB or increased WOB 07/01/2021 Pt started on oxygen yesterday at 2 L/min, overnight he required 3L/min, This AM his SpO2 was 96% and I reduced his Os flow to 1.5L/minute with a resulting SpO2 of 93% and an increase to 96% when Pt laid prone. Will monitor closely. Pt denies SOB or increased WOB, no CP. Pt was given option to start Remdesivir and stated he was not interested at this time but would like to have the steroid daily. 07/02/2021 Attempted to wean off O2 however Pt still requires 1L/min via NC, no CP or SOB, does desaturate to 88% when walking to the restroom and when he goes to the restroom he does take his NC off. 07/03/2021 Pt is on room air today with SpO2 95%, lungs clear, 6 minute walk test was negative for the need for home Oxygen, No c/o CP, SOB or other concerns. will send home with Decadron script to finish the 10 day course. (2) Community acquired pneumonia: Qualifiers: Laterality: unspecified laterality Qualified Code(s): J18.9 - Pneumonia, unspecified organism Code(s): J18.9 - Pneumonia, unspecified organism Status: Acute Assessment and Plan: Pt covered with Rocephin and Azithromycin along with same as listed above. 07/01/2021 Continue with Rocephin and Azithromycin, Pt has Incentive Spirometer and Flutter Valve in his room. 07/02/2021 Pt has 1 more day left on IV Ab. Pt will need a 6 minute walk test if he is DC'ed tomorrow. No SOB or productive cough, did not cough this AM with deep breathing, uses IS and Flutter valve. 07/03/2021 Pt getting last dose of his Rocephin and Azithromycin prior to DC, no respiratory distress, SOB, cough. DS: Summary Hospital Course Hospital Course: Pt has improved lung function, recovered from increased Oxygen demand, passed 6 minute walk test. Time Spent with Patient Time attestation: Total time spent providing and/or coordinating discharge services: < 30 minutes Exam Const: General: cooperative, healthy appearing, comfortable, no acute distress, well developed, alert, awake and Physically active Nutritional Appearance: overweight Resp: Effort & Inspection: normal respiratory effort, no cough and not labored Auscultation: clear to auscultation bilaterally Cardio: Rate: regular rate and bradycardic (When asleep or awake and in prone position) Heart sounds: S1 normal heart sound present and S2 normal heart sound present GI: GI Palp: Yes Soft to palpation, No Tenderness to palpation present (GI) and Yes No hepatosplenomegaly present Auscultation: Hypoactive bowel sounds present Back/Spine/Pelvis: Thoracic/Lumbar Spine: thoracic and lumbar spine normal to inspection Skin: General skin exam: normal color and dry skin Neuro: General: oriented to person, oriented to place and oriented to time Cranial nerves: Yes CN's II-XII intact bilaterally (grossly intact) Cognition (Neuro): normal cognition Speech: normal speech Gait exam (Neuro): Normal gait present Motor exam (neuro): 5/5 motor strength present throughout Extrem: General: full ROM and no pedal edema Psych: Appearance: grossly normal Mental Status: mental status grossly normal Speech and movement: Normal speech and movement present Affect: normal affect Attitude: cooperative Thought process: Normal thought process present DS: Data Data Completed and Pending Labs on day of discharge: Labs from last 24 hours 07/03/21 07/03/21 05:52 05:52 WBC 7.2 RBC 5.31 Hgb 14.3 Hct 45.0 MCV 84.7 MCH 26.9 L MCHC 31.8 L RDW 12.8 Plt Count 349 MPV 8.8 Sodium 145 Pota
--- NOTE | 2021-07-03 13:45 | PC.NURSE ---
Patient discharged home via personal vehicle per self. Discharge instructions given and patient acknowledge understanding. IV site discontinued and removed prior to discharge. All personal belongings bagged up and sent with patient. Staff escorted patient under own power to main entrance where patient proceeded to personal vehicle and drove off.
--- NOTE | 2021-07-05 09:31 | PC.NURSE ---
Pt states he received and understood his discharge instructions. Pt has no other comments.
== END 2021-07-03 13:45 | disposition home or self-care (01) | DRG 177 ==
LOC: CHSED 17:29 → CHS2ND 19:34
PROVIDERS: Nurse Practitioner Family; Admitting Provider Emergency Medicine; Emergency Provider Emergency Medicine; PCP Family Medicine; Visit Provider Emergency Medicine
DX: U07.1 COVID-19 (principal); J12.82 Pneumonia due to coronavirus disease 2019; J18.9 Pneumonia, unspecified organism
CPT/HCPCS: 36415; 36600; 71045; 80048; 80053; 81001; 82805; 83605; 83880; 84484; 85025; 85027; 86140; 87040; 87804; 93005; 94618; 94668; 96360; 96361; 96365; 96367; 99285; A9270; G0378; J0456; J0696; J1100; J1650; J7030; J8540